=== PATIENT | female | born 1980 | race Caucasian/White ===

== ENCOUNTER 2016-07-17 09:50 | Emergency (ER) | payer BC ==
[2016-07-17] MEDS ORDERED: predniSONE 20 MG TAB As Ordered ONE (10:18)
[2016-07-17] MEDS ORDERED: IPRATROPIUM 0.5MG/ALBUTEROL 2.5MG INH SOL UD 3ML (DUONEB)(J7620) As Ordered ONE (10:32)
--- NOTE | 2016-07-17 13:39 | EDDOCDS ---
Physician Documentation [facility] Name: Rhona Reece Age: 36 yrs Sex: Female : 1980 Arrival Date: 07/17/2016 Time: 09:50 Bed PD Private MD: Kasia Victor Abdul Disposition: 07/17/16 13:29 Discharged to Home/Self Care. Impression: Chronic obstructive pulmonary disease with (acute) exacerbation, Atelectasis. - Condition is Stable. - Discharge Instructions: Atelectasis, Adult, Chronic Obstructive Pulmonary Disease. - Prescriptions for Prednisone 20 mg Oral Tablet - take 3 tablet by ORAL route once daily for 5 days; 15 tablet. Moxifloxacin 400 mg Oral Tablet - take 1 tablet by ORAL route once daily; 5 tablet. Albuterol Sulfate 90 mcg/actuation Inhalation HFA Aerosol Inhaler - inhale 2 puff by INHALATION route every 4 hours As needed; 1 Inhaler. Mucinex 600 mg - take 1 tablet by ORAL route 2 times per day; 30 tablet. - Medication Reconciliation, Local Pharmacy Hours form. - Follow up: Kasia Victor; When: 1 - 2 days; Reason: Recheck today's complaints, Continuance of care. Follow up: Emergency Department; Reason: Worsening of conditions. - Problem is new. - Symptoms have improved. Historical: - Allergies: no known allergies; - Home Meds: 1. Depo-Provera IM every 3 mo 2. Albuterol Inhl as needed has machine but no medicine - PMHx: Asthma; - PSHx: none; - Social history: Smoking status: Patient uses tobacco products, current every day smoker. No barriers to communication noted, The patient speaks fluent Gibraltarian, Speaks appropriately for age. - Family history: Not pertinent. - : The pt / caregiver states he / she is not on anticoagulants. Home medication list is obtained from the patient. - Exposure Risk Screening:: None identified. 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 5 in. (165.10 cm) (R); Pain 0/10; 13:33 BP 129 / 72; Pulse 92; Resp 16; Temp 98.2(TE); Pulse Ox 98% on R/A; Pain 0/10; sew 09:54 Body Mass Index 29.95 (81.65 kg, 165.10 cm) mt4 MDM: 10:13 Financial registration complete. lg 10:17 predniSONE 60 mg PO once; administer with food or milk ordered. ef1 10:17 Albuterol-Ipratropium 1 neb Nebulizer every 20 minutes x3 ordered. ef1 10:17 Call Respiratory ordered. ef1 10:17 Call Respiratory complete. kr3 10:18 Chest, 2 View (pa\E\lat) Ordered. EDMS 10:25 [facility] [place] Payment Agreement was scanned into [employer] and attached to record. lg 11:50 CT Chest Without Contrast Ordered. EDMS Administered Medications: 10:20 Drug: predniSONE 60 mg [prednisone 20 mg tablet (3 tabs)] Route: PO; kr3 10:33 Drug: Albuterol-Ipratropium 1 neb [ipratropium-albuterol 0.5 mg-3 mg(2.5 mg base)/3 mL kt1 nebulization soln (1 neb)] Route: Nebulizer; 10:42 Drug: Albuterol-Ipratropium 1 neb [ipratropium-albuterol 0.5 mg-3 mg(2.5 mg base)/3 mL kt1 nebulization soln (1 neb)] Route: Nebulizer; 10:42 Follow up: Response: Nebulizer completed kt1 10:58 Drug: Albuterol-Ipratropium 1 neb [ipratropium-albuterol 0.5 mg-3 mg(2.5 mg base)/3 mL lb nebulization soln (1 neb)] Route: Nebulizer; Signatures: Dispatcher [employer] EDMS Rigo Anderson Reg Reg lg Sakina Marmolejo RN RN kr3 Kera Montana, PA-C PA-C ef1 Julissa Noyola RN RN pml Bickel, Lindsay lb Chatterton, Kristin kt1 The chart was reviewed and I authenticate all verbal orders and agree with the evaluation and treatment provided.Attachments: 10:25 [facility] Payment Agreement lg MTDD
--- NOTE | 2016-07-17 13:39 | EDDOCDS ---
Nurse's Notes [facility] Name: Rhona Reece Age: 36 yrs Sex: Female : 1980 Arrival Date: 07/17/2016 Time: 09:50 Bed PD Private MD: Kasia Victor Abdul Diagnosis: Chronic obstructive pulmonary disease with (acute) exacerbation;Atelectasis Presentation: 07/17 09:56 Presenting complaint: Patient states: while vacuuming dust from sheet rock last night kr3 developed difficulty breathing. Adult Sepsis Screening: The patient does not have new or worsening altered mentation. Patient's respiratory rate is less than 22. Systolic blood pressure is greater than 100. Patient has a qSOFA score of 0- Negative Sepsis Screen. Suicide/Homicide risk assessment- the patient denies having any suicidal and/or homicidal ideations and does not present with any other emotional, behavioral or mental health complaints. 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 Transition of care: patient was not received from another setting of care. 09:56 Acuity: DINH Level 4 kr3 09:56 Method Of Arrival: Walkin/Carried/Asstd kr3 Triage Assessment: 09:58 General: Appears in no apparent distress, comfortable, Behavior is appropriate for age, kr3 cooperative. Pain: Denies pain. HIV screening NA for this visit Offered previously. Neurological: No deficits noted. Respiratory: Onset: The symptoms/episode began/occurred yesterday, Airway is patent Respiratory effort is even, unlabored, Reports shortness of breath. Derm: Skin is normal. 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 Depo-Provera IM every 3 mo 2. Albuterol Inhl as needed has machine but no medicine - PMHx: Asthma; - PSHx: none; - Social history: Smoking status: Patient uses tobacco products, current every day smoker. No barriers to communication noted, The patient speaks fluent Wallisian, Speaks appropriately for age. - Family history: Not pertinent. - : The pt / caregiver states he / she is not on anticoagulants. Home medication list is obtained from the patient. - Exposure Risk Screening:: None identified. Screenin:00 Screening information is obtained from the patient. Fall risk: No risks identified. kr3 Assistance ADL's: requires no assistance with activities of daily living. Abuse/DV Screen: The patient / caregiver reports he/she is: not in a situation that causes fear, pain or injury. Nutritional screening: No deficits noted. Advance Directives: Currently, there is no health care proxy. home support is adequate. Assessment: 10:20 Reassessment: Patient appears in no apparent distress at this time. Cardiovascular: kr3 Chest pain is denied. Respiratory: Airway is patent Respiratory effort is even, unlabored, Breath sounds with wheezes bilaterally. Derm: Skin is pink, warm & dry. 13:38 General: Appears in no apparent distress, Behavior is appropriate for age, cooperative. pml Pain: Denies pain. Neurological: Level of Consciousness is awake, alert, Oriented to person, place, time. Cardiovascular: Capillary refill < 3 seconds. Respiratory: Airway is patent Respiratory effort is even, unlabored. Derm: Skin is pink, warm & dry. Vital Signs: 09:54 BP 131 / 73 RA Sitting (auto/reg); Pulse 100 RA; Resp 18 S; Temp 97.5(O); Pulse Ox 100% mt4 on R/A; Weight 81.65 kg (R); Height 5 ft. 5 in. (165.10 cm) (R); Pain 0/10; 13:33 BP 129 / 72; Pulse 92; Resp 16; Temp 98.2(TE); Pulse Ox 98% on R/A; Pain 0/10; sew 09:54 Body Mass Index 29.95 (81.65 kg, 165.10 cm) mt4 Vitals: 09:54 Log In Time: July 17, 2016 at 09:50. mt4 ED Course: 09:53 Patient visited by Selam Martino. mt4 09:53 Kasia Victor is Private Physician. mt4 09:53 Patient moved to Waiting mt4 09:54 Patient moved to Pre RCE mt4 09:56 Patient moved to Triage 3 kr3 09:57 Triage Initiated kr3 10:00 The patient / caregiver is instructed regarding the plan of care and ED course. Patient kr3 has correct armband on for positive identification. 10:00 No IV's were initiated during this patient's visit. No procedures done that require kr3 assistance. 10:06 Kera Montana PA-C is PHCP. ef1 10:06 Germán Brasher MD is Attending Physician. ef1 10:08 Patient visited by Kera Montana PA-C. ef1 10:17 Patient moved to PD kr3 10:24 Patient name changed from Rhona\S\Amparo\S\Frankson\S\ to Rhona\S\M\S\Frankson. EDMS 10:25 [facility] Payment Agreement was scanned into [employer] and attached to record. lg 10:42 Patient visited by Kera Montana PA-C. ef1 11:25 Patient visited by Kera Montana PA-C. ef1 11:48 Patient visited by Kera Montana PA-C. ef1 12:27 Patient visited by Kera Montana PA-C. ef1 13:12 Patient visited by Kera Montana PA-C. ef1 13:29 Kasia Victor is Referral Physician. ef1 13:33 Patient visited by Alicia Garza. sew Administered Medications: 10:20 Drug: predniSONE 60 mg [prednisone 20 mg tablet (3 tabs)] Route: PO; kr3 10:33 Drug: Albuterol-Ipratropium 1 neb [ipratropium-albuterol 0.5 mg-3 mg(2.5 mg base)/3 mL kt1 nebulization soln (1 neb)] Route: Nebulizer; 10:42 Drug: Albuterol-Ipratropium 1 neb [ipratropium-albuterol 0.5 mg-3 mg(2.5 mg base)/3 mL kt1 nebulization soln (1 neb)] Route: Nebulizer; 10:42 Follow up: Response: Nebulizer completed kt1 10:58 Drug: Albuterol-Ipratropium 1 neb [ipratropium-albuterol 0.5 mg-3 mg(2.5 mg base)/3 mL lb nebulization soln (1 neb)] Route: Nebulizer; RT: 10:36 Initial Med Neb Given as ordered Patient was instructed and evaluated on procedure. kt1 Respiratory: Breath sounds with wheezes bilaterally. at expiration. Order Results: There are currently no results for this order. Outcome: 13:29 Discharge ordered by Provider. ef1 13:38 Discharge Assessment: Patient awake, alert and oriented x 3. No cognitive and/or pml functional deficits noted. Patient verbalized understanding of disposition instructions. patient administered narcotics - no. The following High Risk Discharge criteria are identified: None. Discharged to home ambulatory. Condition: good Condition: stable. Discharge instructions given to patient, Instructed on discharge instructions, follow up and referral plans. medication usage, Demonstrated understanding of instructions, medications, Pt was receptive of discharge instructions/ teaching. Prescriptions given X 3. No special radiology studies were completed. Property sent home with patient. 13:39 Patient left the ED. pml Signatures: Dispatcher [employer] EDMS Rigo Anderson, Reg Reg lg Doni,Trudy Lord kt1 Sakina Marmolejo,RN RN kr3 Selam Martino mt4 Kera Montana, PA-C PA-C ef1 Julissa Noyola RN RN pml Alicia Garza MTDD
--- NOTE | 2016-07-17 20:45 | REP ---
PA and lateral chest 07/17/2016 Indication: Cough Comparison: PA and lateral chest 10/27/2015, 09/28/2013 Findings: The cardiomediastinal silhouette is normal. Small amount of increased density is seen in the retrosternal location likely related to prominent costochondral margins. Lungs are otherwise clear. The bones and soft tissues within normal limits Impression: Small retrosternal opacity is likely related to summation shadow artifact from superimposed rib/costochondral margins. Recommend CT of the chest which can be performed without contrast to exclude scarring, nodule or infiltrate . Signed by Gely Longoria MD 07/17/2016 08:36 P
--- NOTE | 2016-07-17 21:02 | REP ---
CT chest without contrast when 22 17 Indication PA and lateral chest radiograph performed earlier today demonstrated a retrosternal density. Technique: 3 mm spiral axial sections performed through chest without contrast The thoracic aorta is without aneurysm. The heart is of normal size. There are no pathologically enlarged mediastinal or hilar nodes. There is a calcified hilar node There is hyperinflation bilaterally with a rare bullous changes in lower lobes. Stranding densities are seen within the medial aspect of the right upper lobe and the medial aspect of the right middle lobe most compatible with pleural and parenchymal scarring. There is a calcified granuloma of 8 mm size within the anterior segment right upper lobe, above the minor fissure. Visualized portions of liver, spleen, pancreas, gallbladder are normal. There is a 1.6 cm left adrenal adenoma. Focal cortical thinning and cortical calcification is seen within the lateral mid pole of the left kidney and left kidney is incompletely included in view Impression 1. Hyperinflation with findings most compatible with COPD 2. Old granulomatous disease 3 Stranding densities in the medial aspect of the anterior segment right upper lobe and medial aspect right middle lobe most compatible with plate-like atelectasis and/or scarring. Consider follow-up CT chest in 3-6 months 4. Chronic changes/scarring with cortical thinning and calcification in the lateral mid pole left kidney Signed by Gely Longoria MD 07/17/2016 08:54 P
--- NOTE | 2016-07-19 14:40 | EDDOCDS ---
Physician Documentation [facility] Name: Rhona Reece Age: 36 yrs Sex: Female : 1980 Arrival Date: 07/17/2016 Time: 09:50 Bed PD Private MD: Kasia Victor Abdul Disposition: 07/17/16 13:29 Discharged to Home/Self Care. Impression: Chronic obstructive pulmonary disease with (acute) exacerbation, Atelectasis. - Condition is Stable. - Discharge Instructions: Atelectasis, Adult, Chronic Obstructive Pulmonary Disease. - Prescriptions for Prednisone 20 mg Oral Tablet - take 3 tablet by ORAL route once daily for 5 days; 15 tablet. Moxifloxacin 400 mg Oral Tablet - take 1 tablet by ORAL route once daily; 5 tablet. Albuterol Sulfate 90 mcg/actuation Inhalation HFA Aerosol Inhaler - inhale 2 puff by INHALATION route every 4 hours As needed; 1 Inhaler. Mucinex 600 mg - take 1 tablet by ORAL route 2 times per day; 30 tablet. - Medication Reconciliation, Local Pharmacy Hours form. - Follow up: Kasia Victor; When: 1 - 2 days; Reason: Recheck today's complaints, Continuance of care. Follow up: Emergency Department; Reason: Worsening of conditions. - Problem is new. - Symptoms have improved. Historical: - Allergies: no known allergies; - Home Meds: 1. Depo-Provera IM every 3 mo 2. Albuterol Inhl as needed has machine but no medicine - PMHx: Asthma; - PSHx: none; - Social history: Smoking status: Patient uses tobacco products, current every day smoker. No barriers to communication noted, The patient speaks fluent Bruneian, Speaks appropriately for age. - Family history: Not pertinent. - : The pt / caregiver states he / she is not on anticoagulants. Home medication list is obtained from the patient. - Exposure Risk Screening:: None identified. 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 5 in. (165.10 cm) (R); Pain 0/10; 13:33 BP 129 / 72; Pulse 92; Resp 16; Temp 98.2(TE); Pulse Ox 98% on R/A; Pain 0/10; sew 09:54 Body Mass Index 29.95 (81.65 kg, 165.10 cm) mt4 MDM: 10:13 Financial registration complete. lg 10:17 predniSONE 60 mg PO once; administer with food or milk ordered. ef1 10:17 Albuterol-Ipratropium 1 neb Nebulizer every 20 minutes x3 ordered. ef1 10:17 Call Respiratory ordered. ef1 10:17 Call Respiratory complete. kr3 10:18 Chest, 2 View (pa\E\lat) Ordered. EDMS 10:25 [facility] [place] Payment Agreement was scanned into [employer] and attached to record. lg 11:50 CT Chest Without Contrast Ordered. EDMS 19:52 T-Sheet-- Draft Copy was scanned into [employer] and attached to record. klr Administered Medications: 10:20 Drug: predniSONE 60 mg [prednisone 20 mg tablet (3 tabs)] Route: PO; kr3 10:33 Drug: Albuterol-Ipratropium 1 neb [ipratropium-albuterol 0.5 mg-3 mg(2.5 mg base)/3 mL kt1 nebulization soln (1 neb)] Route: Nebulizer; 10:42 Drug: Albuterol-Ipratropium 1 neb [ipratropium-albuterol 0.5 mg-3 mg(2.5 mg base)/3 mL kt1 nebulization soln (1 neb)] Route: Nebulizer; 10:42 Follow up: Response: Nebulizer completed kt1 10:58 Drug: Albuterol-Ipratropium 1 neb [ipratropium-albuterol 0.5 mg-3 mg(2.5 mg base)/3 mL lb nebulization soln (1 neb)] Route: Nebulizer; Signatures: Dispatcher [employer] EDMS Rigo Anderson, Mir Hester lg Sakina Marmolejo RN RN kr3 Kera [place], PA-C PA-C ef1 Julissa Noyola RN RN pml Redder, Kathie klr Ngozi Marion Kristin kt1 The chart was reviewed and I authenticate all verbal orders and agree with the evaluation and treatment provided.Attachments: 10:25 [facility] [place] Payment Agreement lg 19:52 T-Sheet-- Draft Copy klr Chart Complete MTDD
--- NOTE | 2016-07-19 14:40 | EDDOCDS ---
Nurse's Notes [facility] Name: Rhona Reece Age: 36 yrs Sex: Female : 1980 Arrival Date: 07/17/2016 Time: 09:50 Bed PD Private MD: Kasia Victor Abdul Diagnosis: Chronic obstructive pulmonary disease with (acute) exacerbation;Atelectasis Presentation: 07/17 09:56 Presenting complaint: Patient states: while vacuuming dust from sheet rock last night kr3 developed difficulty breathing. Adult Sepsis Screening: The patient does not have new or worsening altered mentation. Patient's respiratory rate is less than 22. Systolic blood pressure is greater than 100. Patient has a qSOFA score of 0- Negative Sepsis Screen. Suicide/Homicide risk assessment- the patient denies having any suicidal and/or homicidal ideations and does not present with any other emotional, behavioral or mental health complaints. Status: Patient is not a social services specialist or dependent. Transition of care: patient was not received from another setting of care. 09:56 Acuity: DINH Level 4 kr3 09:56 Method Of Arrival: Walkin/Carried/Asstd kr3 Triage Assessment: 09:58 General: Appears in no apparent distress, comfortable, Behavior is appropriate for age, kr3 cooperative. Pain: Denies pain. HIV screening NA for this visit Offered previously. Neurological: No deficits noted. Respiratory: Onset: The symptoms/episode began/occurred yesterday, Airway is patent Respiratory effort is even, unlabored, Reports shortness of breath. Derm: Skin is normal. 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 Depo-Provera IM every 3 mo 2. Albuterol Inhl as needed has machine but no medicine - PMHx: Asthma; - PSHx: none; - Social history: Smoking status: Patient uses tobacco products, current every day smoker. No barriers to communication noted, The patient speaks fluent Palestinian, Speaks appropriately for age. - Family history: Not pertinent. - : The pt / caregiver states he / she is not on anticoagulants. Home medication list is obtained from the patient. - Exposure Risk Screening:: None identified. Screenin:00 Screening information is obtained from the patient. Fall risk: No risks identified. kr3 Assistance ADL's: requires no assistance with activities of daily living. Abuse/DV Screen: The patient / caregiver reports he/she is: not in a situation that causes fear, pain or injury. Nutritional screening: No deficits noted. Advance Directives: Currently, there is no health care proxy. home support is adequate. Assessment: 10:20 Reassessment: Patient appears in no apparent distress at this time. Cardiovascular: kr3 Chest pain is denied. Respiratory: Airway is patent Respiratory effort is even, unlabored, Breath sounds with wheezes bilaterally. Derm: Skin is pink, warm & dry. 13:38 General: Appears in no apparent distress, Behavior is appropriate for age, cooperative. pml Pain: Denies pain. Neurological: Level of Consciousness is awake, alert, Oriented to person, place, time. Cardiovascular: Capillary refill < 3 seconds. Respiratory: Airway is patent Respiratory effort is even, unlabored. Derm: Skin is pink, warm & dry. Vital Signs: 09:54 BP 131 / 73 RA Sitting (auto/reg); Pulse 100 RA; Resp 18 S; Temp 97.5(O); Pulse Ox 100% mt4 on R/A; Weight 81.65 kg (R); Height 5 ft. 5 in. (165.10 cm) (R); Pain 0/10; 13:33 BP 129 / 72; Pulse 92; Resp 16; Temp 98.2(TE); Pulse Ox 98% on R/A; Pain 0/10; sew 09:54 Body Mass Index 29.95 (81.65 kg, 165.10 cm) mt4 Vitals: 09:54 Log In Time: July 17, 2016 at 09:50. mt4 ED Course: 09:53 Patient visited by Selam Martino. mt4 09:53 Kasia Victor is Private Physician. mt4 09:53 Patient moved to Waiting mt4 09:54 Patient moved to Pre RCE mt4 09:56 Patient moved to Triage 3 kr3 09:57 Triage Initiated kr3 10:00 The patient / caregiver is instructed regarding the plan of care and ED course. Patient kr3 has correct armband on for positive identification. 10:00 No IV's were initiated during this patient's visit. No procedures done that require kr3 assistance. 10:06 Kera Montana PA-C is PHCP. ef1 10:06 Germán Brasher MD is Attending Physician. ef1 10:08 Patient visited by Kera Montana PA-C. ef1 10:17 Patient moved to PD kr3 10:24 Patient name changed from Rhona\S\Amparo\S\Frankson\S\ to Rhona\S\M\S\Frankson. EDMS 10:25 [facility] [place] [place] Payment Agreement was scanned into [employer] and attached to record. lg 10:42 Patient visited by Kera Montana PA-C. ef1 11:25 Patient visited by Kera Montana PA-C. ef1 11:48 Patient visited by Kera Montana PA-C. ef1 12:27 Patient visited by Kera Montana PA-C. ef1 13:12 Patient visited by Kera Montana PA-C. ef1 13:29 Kasia Victor is Referral Physician. ef1 13:33 Patient visited by Alicia Garza. sew 19:52 T-Sheet-- Draft Copy was scanned into [employer] and attached to record. klr 20:58 Chest, 2 View (pa\E\lat) Returned. EDMS 21:42 CT Chest Without Contrast Returned. EDMS Administered Medications: 10:20 Drug: predniSONE 60 mg [prednisone 20 mg tablet (3 tabs)] Route: PO; kr3 10:33 Drug: Albuterol-Ipratropium 1 neb [ipratropium-albuterol 0.5 mg-3 mg(2.5 mg base)/3 mL kt1 nebulization soln (1 neb)] Route: Nebulizer; 10:42 Drug: Albuterol-Ipratropium 1 neb [ipratropium-albuterol 0.5 mg-3 mg(2.5 mg base)/3 mL kt1 nebulization soln (1 neb)] Route: Nebulizer; 10:42 Follow up: Response: Nebulizer completed kt1 10:58 Drug: Albuterol-Ipratropium 1 neb [ipratropium-albuterol 0.5 mg-3 mg(2.5 mg base)/3 mL lb nebulization soln (1 neb)] Route: Nebulizer; RT: 10:36 Initial Med Neb Given as ordered Patient was instructed and evaluated on procedure. kt1 Respiratory: Breath sounds with wheezes bilaterally. at expiration. Order Results: Radiology Order: Chest, 2 View (pa\E\lat) Test: Chest, 2 View (pa\E\lat) REASON FOR EXAMINATION: Cough; PA and lateral chest 07/17/2016; ; Indication: Cough; ; Comparison: PA and lateral chest 10/27/2015, 09/28/2013; ; Findings: The cardiomediastinal silhouette is normal. Small amount of increased; density is seen in the retrosternal location likely related to prominent; costochondral margins. Lungs are otherwise clear. The bones and soft tissues; within normal limits; ; Impression:; ; Small retrosternal opacity is likely related to summation shadow artifact from; superimposed rib/costochondral margins.; ; Recommend CT of the chest which can be performed without contrast to exclude; scarring, nodule or infiltrate .; ; ; Signed by; Gely Longoria MD 07/17/2016 08:36 P; Radiology Order: CT Chest Without Contrast Test: CT Chest Without Contrast REASON FOR EXAMINATION: abn on CXR; CT chest without contrast when 17; ; Indication PA and lateral chest radiograph performed earlier today demonstrated a; retrosternal density.; ; Technique: 3 mm spiral axial sections performed through chest without contrast; ; The thoracic aorta is without aneurysm. The heart is of normal size. There are; no pathologically enlarged mediastinal or hilar nodes. There is a calcified; hilar node; ; There is hyperinflation bilaterally with a rare bullous changes in lower lobes.; Stranding densities are seen within the medial aspect of the right upper lobe and; the medial aspect of the right middle lobe most compatible with pleural and; parenchymal scarring. There is a calcified granuloma of 8 mm size within the; anterior segment right upper lobe, above the minor fissure.; ; Visualized portions of liver, spleen, pancreas, gallbladder are normal. There is; a 1.6 cm left adrenal adenoma. Focal cortical thinning and cortical; calcification is seen within the lateral mid pole of the left kidney and left; kidney is incompletely included in view; ; Impression; 1. Hyperinflation with findings most compatible with COPD; ; 2. Old granulomatous disease; ; 3 Stranding densities in the medial aspect of the anterior segment right upper; lobe and medial aspect right middle lobe most compatible with plate-like; atelectasis and/or scarring. Consider follow-up CT chest in 3-6 months; ; 4. Chronic changes/scarring with cortical thinning and calcification in the; lateral mid pole left kidney; ; ; Signed by; Gely Longoria MD 07/17/2016 08:54 P; Outcome: 13:29 Discharge ordered by Provider. ef1 13:38 Discharge Assessment: Patient awake, alert and oriented x 3. No cognitive and/or pml functional deficits noted. Patient verbalized understanding of disposition instructions. patient administered narcotics - no. The following High Risk Discharge criteria are identified: None. Discharged to home ambulatory. Condition: good Condition: stable. Discharge instructions given to patient, Instructed on discharge instructions, follow up and referral plans. medication usage, Demonstrated understanding of instructions, medications, Pt was receptive of discharge instructions/ teaching. Prescriptions given X 3. No special radiology studies were completed. Property sent home with patient. 13:39 Patient left the ED. pml Signatures: Dispatcher [employer] EDRigo Batista, Reg Reg Ngozi Gama Kristin kt1 Sakina Marmolejo,RN RN kr3 Selam Martino mt4 Kera Montana, PA-C PA-C ef1 Julissa Noyola,RN RN Alicia Julian Kathie klr Chart Complete MTDD
--- NOTE | 2016-07-19 14:40 | EDDOCDS ---
Physician Documentation [facility] Name: Rhona Reece Age: 36 yrs Sex: Female : 1980 Arrival Date: 07/17/2016 Time: 09:50 Bed PD Private MD: Kasia Victor Abdul Disposition: 07/17/16 13:29 Discharged to Home/Self Care. Impression: Chronic obstructive pulmonary disease with (acute) exacerbation, Atelectasis. - Condition is Stable. - Discharge Instructions: Atelectasis, Adult, Chronic Obstructive Pulmonary Disease. - Prescriptions for Prednisone 20 mg Oral Tablet - take 3 tablet by ORAL route once daily for 5 days; 15 tablet. Moxifloxacin 400 mg Oral Tablet - take 1 tablet by ORAL route once daily; 5 tablet. Albuterol Sulfate 90 mcg/actuation Inhalation HFA Aerosol Inhaler - inhale 2 puff by INHALATION route every 4 hours As needed; 1 Inhaler. Mucinex 600 mg - take 1 tablet by ORAL route 2 times per day; 30 tablet. - Medication Reconciliation, Local Pharmacy Hours form. - Follow up: Kasia Victor; When: 1 - 2 days; Reason: Recheck today's complaints, Continuance of care. Follow up: Emergency Department; Reason: Worsening of conditions. - Problem is new. - Symptoms have improved. Historical: - Allergies: no known allergies; - Home Meds: 1. Depo-Provera IM every 3 mo 2. Albuterol Inhl as needed has machine but no medicine - PMHx: Asthma; - PSHx: none; - Social history: Smoking status: Patient uses tobacco products, current every day smoker. No barriers to communication noted, The patient speaks fluent Armenian, Speaks appropriately for age. - Family history: Not pertinent. - : The pt / caregiver states he / she is not on anticoagulants. Home medication list is obtained from the patient. - Exposure Risk Screening:: None identified. 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 5 in. (165.10 cm) (R); Pain 0/10; 13:33 BP 129 / 72; Pulse 92; Resp 16; Temp 98.2(TE); Pulse Ox 98% on R/A; Pain 0/10; sew 09:54 Body Mass Index 29.95 (81.65 kg, 165.10 cm) mt4 MDM: 10:13 Financial registration complete. lg 10:17 predniSONE 60 mg PO once; administer with food or milk ordered. ef1 10:17 Albuterol-Ipratropium 1 neb Nebulizer every 20 minutes x3 ordered. ef1 10:17 Call Respiratory ordered. ef1 10:17 Call Respiratory complete. kr3 10:18 Chest, 2 View (pa\E\lat) Ordered. EDMS 10:25 [facility] [place] Agreement was scanned into [facility] and attached to record. lg 11:50 CT Chest Without Contrast Ordered. EDMS 19:52 T-Sheet-- Draft Copy was scanned into [facility] and attached to record. klr Administered Medications: 10:20 Drug: predniSONE 60 mg [prednisone 20 mg tablet (3 tabs)] Route: PO; kr3 10:33 Drug: Albuterol-Ipratropium 1 neb [ipratropium-albuterol 0.5 mg-3 mg(2.5 mg base)/3 mL kt1 nebulization soln (1 neb)] Route: Nebulizer; 10:42 Drug: Albuterol-Ipratropium 1 neb [ipratropium-albuterol 0.5 mg-3 mg(2.5 mg base)/3 mL kt1 nebulization soln (1 neb)] Route: Nebulizer; 10:42 Follow up: Response: Nebulizer completed kt1 10:58 Drug: Albuterol-Ipratropium 1 neb [ipratropium-albuterol 0.5 mg-3 mg(2.5 mg base)/3 mL lb nebulization soln (1 neb)] Route: Nebulizer; Signatures: Dispatcher [employer] EDMS Rigo Anderson, Mir Hester lg Sakina Marmolejo RN RN kr3 Kera Montana, PA-C PA-C ef1 Julissa Noyola RN RN pml Redder, Kathie klr Ngozi Marion Kristin kt1 The chart was reviewed and I authenticate all verbal orders and agree with the evaluation and treatment provided.Attachments: 10:25 [facility] [place] Agreement lg 19:52 T-Sheet-- Draft Copy klr Chart Complete MTDD
--- NOTE | 2016-07-19 20:17 | EDDOCDS ---
Physician Documentation [facility] Name: Rhona Reece Age: 36 yrs Sex: Female : 1980 Arrival Date: 07/17/2016 Time: 09:50 Bed PD Private MD: Kasia Victor Abdul Disposition: 07/17/16 13:29 Discharged to Home/Self Care. Impression: Chronic obstructive pulmonary disease with (acute) exacerbation, Atelectasis. - Condition is Stable. - Discharge Instructions: Atelectasis, Adult, Chronic Obstructive Pulmonary Disease. - Prescriptions for Prednisone 20 mg Oral Tablet - take 3 tablet by ORAL route once daily for 5 days; 15 tablet. Moxifloxacin 400 mg Oral Tablet - take 1 tablet by ORAL route once daily; 5 tablet. Albuterol Sulfate 90 mcg/actuation Inhalation HFA Aerosol Inhaler - inhale 2 puff by INHALATION route every 4 hours As needed; 1 Inhaler. Mucinex 600 mg - take 1 tablet by ORAL route 2 times per day; 30 tablet. - Medication Reconciliation, Local Pharmacy Hours form. - Follow up: Kasia Victor; When: 1 - 2 days; Reason: Recheck today's complaints, Continuance of care. Follow up: Emergency Department; Reason: Worsening of conditions. - Problem is new. - Symptoms have improved. Historical: - Allergies: no known allergies; - Home Meds: 1. Depo-Provera IM every 3 mo 2. Albuterol Inhl as needed has machine but no medicine - PMHx: Asthma; - PSHx: none; - Social history: Smoking status: Patient uses tobacco products, current every day smoker. No barriers to communication noted, The patient speaks fluent Venezuelan, Speaks appropriately for age. - Family history: Not pertinent. - : The pt / caregiver states he / she is not on anticoagulants. Home medication list is obtained from the patient. - Exposure Risk Screening:: None identified. 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 5 in. (165.10 cm) (R); Pain 0/10; 13:33 BP 129 / 72; Pulse 92; Resp 16; Temp 98.2(TE); Pulse Ox 98% on R/A; Pain 0/10; sew 09:54 Body Mass Index 29.95 (81.65 kg, 165.10 cm) mt4 MDM: 10:13 Financial registration complete. lg 10:17 predniSONE 60 mg PO once; administer with food or milk ordered. ef1 10:17 Albuterol-Ipratropium 1 neb Nebulizer every 20 minutes x3 ordered. ef1 10:17 Call Respiratory ordered. ef1 10:17 Call Respiratory complete. kr3 10:18 Chest, 2 View (pa\E\lat) Ordered. EDMS 10:25 [facility] Payment Agreement was scanned into [employer] and attached to record. lg 11:50 CT Chest Without Contrast Ordered. EDMS 19:52 T-Sheet-- Draft Copy was scanned into [employer] and attached to record. klr Administered Medications: 10:20 Drug: predniSONE 60 mg [prednisone 20 mg tablet (3 tabs)] Route: PO; kr3 10:33 Drug: Albuterol-Ipratropium 1 neb [ipratropium-albuterol 0.5 mg-3 mg(2.5 mg base)/3 mL kt1 nebulization soln (1 neb)] Route: Nebulizer; 10:42 Drug: Albuterol-Ipratropium 1 neb [ipratropium-albuterol 0.5 mg-3 mg(2.5 mg base)/3 mL kt1 nebulization soln (1 neb)] Route: Nebulizer; 10:42 Follow up: Response: Nebulizer completed kt1 10:58 Drug: Albuterol-Ipratropium 1 neb [ipratropium-albuterol 0.5 mg-3 mg(2.5 mg base)/3 mL lb nebulization soln (1 neb)] Route: Nebulizer; Addendum: 07/19/2016 20:15 Radiology Callback: Radiology results faxed to primary care physician/provider. dr mari leonardo faxed formal report of ct chest for fu mlg. Signatures: Dispatcher [employer] EDCO Olive Gaines MD MD ml Ganter, LoriLee, Reg Reg lg Sakina Marmolejo RN RN kr3 Kera Montana, PA-C PA-C ef1 Julissa Noyola RN RN pml Redder, Kathie klr Bickel, Lindsay lb [place], Kristin kt1 The chart was reviewed and I authenticate all verbal orders and agree with the evaluation and treatment provided.Attachments: 07/17 10:25 [facility] Payment Agreement lg 19:52 T-Sheet-- Draft Copy klr MTDD
--- NOTE | 2016-07-19 20:17 | EDDOCDS ---
Nurse's Notes [facility] Name: Rhona Reece Age: 36 yrs Sex: Female : 1980 Arrival Date: 07/17/2016 Time: 09:50 Bed PD Private MD: Kasia Victor Abdul Diagnosis: Chronic obstructive pulmonary disease with (acute) exacerbation;Atelectasis Presentation: 07/17 09:56 Presenting complaint: Patient states: while vacuuming dust from sheet rock last night kr3 developed difficulty breathing. Adult Sepsis Screening: The patient does not have new or worsening altered mentation. Patient's respiratory rate is less than 22. Systolic blood pressure is greater than 100. Patient has a qSOFA score of 0- Negative Sepsis Screen. Suicide/Homicide risk assessment- the patient denies having any suicidal and/or homicidal ideations and does not present with any other emotional, behavioral or mental health complaints. Status: Patient is not a guest services manager or dependent. Transition of care: patient was not received from another setting of care. 09:56 Acuity: DINH Level 4 kr3 09:56 Method Of Arrival: Walkin/Carried/Asstd kr3 Triage Assessment: 09:58 General: Appears in no apparent distress, comfortable, Behavior is appropriate for age, kr3 cooperative. Pain: Denies pain. HIV screening NA for this visit Offered previously. Neurological: No deficits noted. Respiratory: Onset: The symptoms/episode began/occurred yesterday, Airway is patent Respiratory effort is even, unlabored, Reports shortness of breath. Derm: Skin is normal. 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 Depo-Provera IM every 3 mo 2. Albuterol Inhl as needed has machine but no medicine - PMHx: Asthma; - PSHx: none; - Social history: Smoking status: Patient uses tobacco products, current every day smoker. No barriers to communication noted, The patient speaks fluent Swazi, Speaks appropriately for age. - Family history: Not pertinent. - : The pt / caregiver states he / she is not on anticoagulants. Home medication list is obtained from the patient. - Exposure Risk Screening:: None identified. Screenin:00 Screening information is obtained from the patient. Fall risk: No risks identified. kr3 Assistance ADL's: requires no assistance with activities of daily living. Abuse/DV Screen: The patient / caregiver reports he/she is: not in a situation that causes fear, pain or injury. Nutritional screening: No deficits noted. Advance Directives: Currently, there is no health care proxy. home support is adequate. Assessment: 10:20 Reassessment: Patient appears in no apparent distress at this time. Cardiovascular: kr3 Chest pain is denied. Respiratory: Airway is patent Respiratory effort is even, unlabored, Breath sounds with wheezes bilaterally. Derm: Skin is pink, warm & dry. 13:38 General: Appears in no apparent distress, Behavior is appropriate for age, cooperative. pml Pain: Denies pain. Neurological: Level of Consciousness is awake, alert, Oriented to person, place, time. Cardiovascular: Capillary refill < 3 seconds. Respiratory: Airway is patent Respiratory effort is even, unlabored. Derm: Skin is pink, warm & dry. Vital Signs: 09:54 BP 131 / 73 RA Sitting (auto/reg); Pulse 100 RA; Resp 18 S; Temp 97.5(O); Pulse Ox 100% mt4 on R/A; Weight 81.65 kg (R); Height 5 ft. 5 in. (165.10 cm) (R); Pain 0/10; 13:33 BP 129 / 72; Pulse 92; Resp 16; Temp 98.2(TE); Pulse Ox 98% on R/A; Pain 0/10; sew 09:54 Body Mass Index 29.95 (81.65 kg, 165.10 cm) mt4 Vitals: 09:54 Log In Time: July 17, 2016 at 09:50. mt4 ED Course: 09:53 Patient visited by Selam Martino. mt4 09:53 Kasia Victor is Private Physician. mt4 09:53 Patient moved to Waiting mt4 09:54 Patient moved to Pre RCE mt4 09:56 Patient moved to Triage 3 kr3 09:57 Triage Initiated kr3 10:00 The patient / caregiver is instructed regarding the plan of care and ED course. Patient kr3 has correct armband on for positive identification. 10:00 No IV's were initiated during this patient's visit. No procedures done that require kr3 assistance. 10:06 Kera Montana PA-C is PHCP. ef1 10:06 Germán Brasher MD is Attending Physician. ef1 10:08 Patient visited by Kera Montana PA-C. ef1 10:17 Patient moved to PD kr3 10:24 Patient name changed from Rhona\S\Amparo\S\Frankson\S\ to Rhona\S\M\S\Frankson. EDMS 10:25 [facility] Payment Agreement was scanned into [employer] and attached to record. lg 10:42 Patient visited by Kera Montana PA-C. ef1 11:25 Patient visited by Kera Montana PA-C. ef1 11:48 Patient visited by Kera Montana PA-C. ef1 12:27 Patient visited by Kera Montana PA-C. ef1 13:12 Patient visited by Kera Montana PA-C. ef1 13:29 Kasia Victor is Referral Physician. ef1 13:33 Patient visited by Alicia Garza. sew 19:52 T-Sheet-- Draft Copy was scanned into [employer] and attached to record. klr 20:58 Chest, 2 View (pa\E\lat) Returned. EDMS 21:42 CT Chest Without Contrast Returned. EDMS Administered Medications: 10:20 Drug: predniSONE 60 mg [prednisone 20 mg tablet (3 tabs)] Route: PO; kr3 10:33 Drug: Albuterol-Ipratropium 1 neb [ipratropium-albuterol 0.5 mg-3 mg(2.5 mg base)/3 mL kt1 nebulization soln (1 neb)] Route: Nebulizer; 10:42 Drug: Albuterol-Ipratropium 1 neb [ipratropium-albuterol 0.5 mg-3 mg(2.5 mg base)/3 mL kt1 nebulization soln (1 neb)] Route: Nebulizer; 10:42 Follow up: Response: Nebulizer completed kt1 10:58 Drug: Albuterol-Ipratropium 1 neb [ipratropium-albuterol 0.5 mg-3 mg(2.5 mg base)/3 mL lb nebulization soln (1 neb)] Route: Nebulizer; RT: 10:36 Initial Med Neb Given as ordered Patient was instructed and evaluated on procedure. kt1 Respiratory: Breath sounds with wheezes bilaterally. at expiration. Order Results: Radiology Order: Chest, 2 View (pa\E\lat) Test: Chest, 2 View (pa\E\lat) REASON FOR EXAMINATION: Cough; PA and lateral chest 07/17/2016; ; Indication: Cough; ; Comparison: PA and lateral chest 10/27/2015, 09/28/2013; ; Findings: The cardiomediastinal silhouette is normal. Small amount of increased; density is seen in the retrosternal location likely related to prominent; costochondral margins. Lungs are otherwise clear. The bones and soft tissues; within normal limits; ; Impression:; ; Small retrosternal opacity is likely related to summation shadow artifact from; superimposed rib/costochondral margins.; ; Recommend CT of the chest which can be performed without contrast to exclude; scarring, nodule or infiltrate .; ; ; Signed by; Gely Longoria MD 07/17/2016 08:36 P; Radiology Order: CT Chest Without Contrast Test: CT Chest Without Contrast REASON FOR EXAMINATION: abn on CXR; CT chest without contrast when 17; ; Indication PA and lateral chest radiograph performed earlier today demonstrated a; retrosternal density.; ; Technique: 3 mm spiral axial sections performed through chest without contrast; ; The thoracic aorta is without aneurysm. The heart is of normal size. There are; no pathologically enlarged mediastinal or hilar nodes. There is a calcified; hilar node; ; There is hyperinflation bilaterally with a rare bullous changes in lower lobes.; Stranding densities are seen within the medial aspect of the right upper lobe and; the medial aspect of the right middle lobe most compatible with pleural and; parenchymal scarring. There is a calcified granuloma of 8 mm size within the; anterior segment right upper lobe, above the minor fissure.; ; Visualized portions of liver, spleen, pancreas, gallbladder are normal. There is; a 1.6 cm left adrenal adenoma. Focal cortical thinning and cortical; calcification is seen within the lateral mid pole of the left kidney and left; kidney is incompletely included in view; ; Impression; 1. Hyperinflation with findings most compatible with COPD; ; 2. Old granulomatous disease; ; 3 Stranding densities in the medial aspect of the anterior segment right upper; lobe and medial aspect right middle lobe most compatible with plate-like; atelectasis and/or scarring. Consider follow-up CT chest in 3-6 months; ; 4. Chronic changes/scarring with cortical thinning and calcification in the; lateral mid pole left kidney; ; ; Signed by; Gely Longoria MD 07/17/2016 08:54 P; Outcome: 13:29 Discharge ordered by Provider. ef1 13:38 Discharge Assessment: Patient awake, alert and oriented x 3. No cognitive and/or pml functional deficits noted. Patient verbalized understanding of disposition instructions. patient administered narcotics - no. The following High Risk Discharge criteria are identified: None. Discharged to home ambulatory. Condition: good Condition: stable. Discharge instructions given to patient, Instructed on discharge instructions, follow up and referral plans. medication usage, Demonstrated understanding of instructions, medications, Pt was receptive of discharge instructions/ teaching. Prescriptions given X 3. No special radiology studies were completed. Property sent home with patient. 13:39 Patient left the ED. pml Signatures: Dispatcher [employer] EDRigo Batista, Reg Reg Ngozi Gama Kristin kt1 Sakina Marmolejo,RN RN kr3 Selam Martino mt4 Kera Montana, PA-C PA-C ef1 Julissa Noyola,RN RN Alicia Julian Kathie klr Chart Complete MTDD
--- NOTE | 2016-07-19 20:17 | EDDOCDS ---
Physician Documentation [facility] Name: Rhona Reece Age: 36 yrs Sex: Female : 1980 Arrival Date: 07/17/2016 Time: 09:50 Bed PD Private MD: Kasia Victor Abdul Disposition: 07/17/16 13:29 Discharged to Home/Self Care. Impression: Chronic obstructive pulmonary disease with (acute) exacerbation, Atelectasis. - Condition is Stable. - Discharge Instructions: Atelectasis, Adult, Chronic Obstructive Pulmonary Disease. - Prescriptions for Prednisone 20 mg Oral Tablet - take 3 tablet by ORAL route once daily for 5 days; 15 tablet. Moxifloxacin 400 mg Oral Tablet - take 1 tablet by ORAL route once daily; 5 tablet. Albuterol Sulfate 90 mcg/actuation Inhalation HFA Aerosol Inhaler - inhale 2 puff by INHALATION route every 4 hours As needed; 1 Inhaler. Mucinex 600 mg - take 1 tablet by ORAL route 2 times per day; 30 tablet. - Medication Reconciliation, Local Pharmacy Hours form. - Follow up: Kasia Victor; When: 1 - 2 days; Reason: Recheck today's complaints, Continuance of care. Follow up: Emergency Department; Reason: Worsening of conditions. - Problem is new. - Symptoms have improved. Historical: - Allergies: no known allergies; - Home Meds: 1. Depo-Provera IM every 3 mo 2. Albuterol Inhl as needed has machine but no medicine - PMHx: Asthma; - PSHx: none; - Social history: Smoking status: Patient uses tobacco products, current every day smoker. No barriers to communication noted, The patient speaks fluent Djiboutian, Speaks appropriately for age. - Family history: Not pertinent. - : The pt / caregiver states he / she is not on anticoagulants. Home medication list is obtained from the patient. - Exposure Risk Screening:: None identified. 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 5 in. (165.10 cm) (R); Pain 0/10; 13:33 BP 129 / 72; Pulse 92; Resp 16; Temp 98.2(TE); Pulse Ox 98% on R/A; Pain 0/10; sew 09:54 Body Mass Index 29.95 (81.65 kg, 165.10 cm) mt4 MDM: 10:13 Financial registration complete. lg 10:17 predniSONE 60 mg PO once; administer with food or milk ordered. ef1 10:17 Albuterol-Ipratropium 1 neb Nebulizer every 20 minutes x3 ordered. ef1 10:17 Call Respiratory ordered. ef1 10:17 Call Respiratory complete. kr3 10:18 Chest, 2 View (pa\E\lat) Ordered. EDMS 10:25 [facility] [place] Agreement was scanned into [employer] and attached to record. lg 11:50 CT Chest Without Contrast Ordered. EDMS 19:52 T-Sheet-- Draft Copy was scanned into [employer] and attached to record. klr Administered Medications: 10:20 Drug: predniSONE 60 mg [prednisone 20 mg tablet (3 tabs)] Route: PO; kr3 10:33 Drug: Albuterol-Ipratropium 1 neb [ipratropium-albuterol 0.5 mg-3 mg(2.5 mg base)/3 mL kt1 nebulization soln (1 neb)] Route: Nebulizer; 10:42 Drug: Albuterol-Ipratropium 1 neb [ipratropium-albuterol 0.5 mg-3 mg(2.5 mg base)/3 mL kt1 nebulization soln (1 neb)] Route: Nebulizer; 10:42 Follow up: Response: Nebulizer completed kt1 10:58 Drug: Albuterol-Ipratropium 1 neb [ipratropium-albuterol 0.5 mg-3 mg(2.5 mg base)/3 mL lb nebulization soln (1 neb)] Route: Nebulizer; Addendum: 07/19/2016 20:15 Radiology Callback: Radiology results faxed to primary care physician/provider. dr mari leonardo faxed formal report of ct chest for fu mlg. Signatures: Dispatcher [employer] EDID Olive Gaines MD MD ml Ganter, LoriLee, Reg Reg lg Sakina Marmolejo RN RN kr3 Kera Montana, PA-C PA-C ef1 Julissa Noyola RN RN pml Redder, Kathie klr Bickel, Lindsay lb Chatterton, Kristin kt1 The chart was reviewed and I authenticate all verbal orders and agree with the evaluation and treatment provided.Attachments: 07/17 10:25 [facility] [place] Agreement lg 19:52 T-Sheet-- Draft Copy klr Chart Complete MTDD
--- NOTE | 2016-07-19 20:17 | EDDOCDS ---
Physician Documentation [facility] Name: Rhona Reece Age: 36 yrs Sex: Female : 1980 Arrival Date: 07/17/2016 Time: 09:50 Bed PD Private MD: Kasia Victor Abdul Disposition: 07/17/16 13:29 Discharged to Home/Self Care. Impression: Chronic obstructive pulmonary disease with (acute) exacerbation, Atelectasis. - Condition is Stable. - Discharge Instructions: Atelectasis, Adult, Chronic Obstructive Pulmonary Disease. - Prescriptions for Prednisone 20 mg Oral Tablet - take 3 tablet by ORAL route once daily for 5 days; 15 tablet. Moxifloxacin 400 mg Oral Tablet - take 1 tablet by ORAL route once daily; 5 tablet. Albuterol Sulfate 90 mcg/actuation Inhalation HFA Aerosol Inhaler - inhale 2 puff by INHALATION route every 4 hours As needed; 1 Inhaler. Mucinex 600 mg - take 1 tablet by ORAL route 2 times per day; 30 tablet. - Medication Reconciliation, Local Pharmacy Hours form. - Follow up: Kasia Victor; When: 1 - 2 days; Reason: Recheck today's complaints, Continuance of care. Follow up: Emergency Department; Reason: Worsening of conditions. - Problem is new. - Symptoms have improved. Historical: - Allergies: no known allergies; - Home Meds: 1. Depo-Provera IM every 3 mo 2. Albuterol Inhl as needed has machine but no medicine - PMHx: Asthma; - PSHx: none; - Social history: Smoking status: Patient uses tobacco products, current every day smoker. No barriers to communication noted, The patient speaks fluent Fijian, Speaks appropriately for age. - Family history: Not pertinent. - : The pt / caregiver states he / she is not on anticoagulants. Home medication list is obtained from the patient. - Exposure Risk Screening:: None identified. 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 5 in. (165.10 cm) (R); Pain 0/10; 13:33 BP 129 / 72; Pulse 92; Resp 16; Temp 98.2(TE); Pulse Ox 98% on R/A; Pain 0/10; sew 09:54 Body Mass Index 29.95 (81.65 kg, 165.10 cm) mt4 MDM: 10:13 Financial registration complete. lg 10:17 predniSONE 60 mg PO once; administer with food or milk ordered. ef1 10:17 Albuterol-Ipratropium 1 neb Nebulizer every 20 minutes x3 ordered. ef1 10:17 Call Respiratory ordered. ef1 10:17 Call Respiratory complete. kr3 10:18 Chest, 2 View (pa\E\lat) Ordered. EDMS 10:25 [facility] Payment Agreement was scanned into [employer] and attached to record. lg 11:50 CT Chest Without Contrast Ordered. EDMS 19:52 T-Sheet-- Draft Copy was scanned into [employer] and attached to record. klr Administered Medications: 10:20 Drug: predniSONE 60 mg [prednisone 20 mg tablet (3 tabs)] Route: PO; kr3 10:33 Drug: Albuterol-Ipratropium 1 neb [ipratropium-albuterol 0.5 mg-3 mg(2.5 mg base)/3 mL kt1 nebulization soln (1 neb)] Route: Nebulizer; 10:42 Drug: Albuterol-Ipratropium 1 neb [ipratropium-albuterol 0.5 mg-3 mg(2.5 mg base)/3 mL kt1 nebulization soln (1 neb)] Route: Nebulizer; 10:42 Follow up: Response: Nebulizer completed kt1 10:58 Drug: Albuterol-Ipratropium 1 neb [ipratropium-albuterol 0.5 mg-3 mg(2.5 mg base)/3 mL lb nebulization soln (1 neb)] Route: Nebulizer; Addendum: 07/19/2016 20:15 Radiology Callback: Radiology results faxed to primary care physician/provider. dr mari leonardo faxed formal report of ct chest for fu mlg. Signatures: Dispatcher [employer] EDWA Olive Gaines MD MD ml Ganter, LoriLee, Reg Reg lg Sakina Marmolejo RN RN kr3 Kera Montana, PA-C PA-C ef1 Julissa Noyola RN RN pml Redder, Kathie klr Bickel, Lindsay lb [place]ter[place], Kristin kt1 The chart was reviewed and I authenticate all verbal orders and agree with the evaluation and treatment provided.Attachments: 07/17 10:25 [facility] Payment Agreement lg 19:52 T-Sheet-- Draft Copy klr Chart Complete MTDD
--- NOTE | 2016-07-19 20:17 | EDDOCDS ---
Nurse's Notes [facility] Name: Rhona Reece Age: 36 yrs Sex: Female : 1980 Arrival Date: 07/17/2016 Time: 09:50 Bed PD Private MD: Kasia Victor Abdul Diagnosis: Chronic obstructive pulmonary disease with (acute) exacerbation;Atelectasis Presentation: 07/17 09:56 Presenting complaint: Patient states: while vacuuming dust from sheet rock last night kr3 developed difficulty breathing. Adult Sepsis Screening: The patient does not have new or worsening altered mentation. Patient's respiratory rate is less than 22. Systolic blood pressure is greater than 100. Patient has a qSOFA score of 0- Negative Sepsis Screen. Suicide/Homicide risk assessment- the patient denies having any suicidal and/or homicidal ideations and does not present with any other emotional, behavioral or mental health complaints. Status: Patient is not a financial services rep or dependent. Transition of care: patient was not received from another setting of care. 09:56 Acuity: DINH Level 4 kr3 09:56 Method Of Arrival: Walkin/Carried/Asstd kr3 Triage Assessment: 09:58 General: Appears in no apparent distress, comfortable, Behavior is appropriate for age, kr3 cooperative. Pain: Denies pain. HIV screening NA for this visit Offered previously. Neurological: No deficits noted. Respiratory: Onset: The symptoms/episode began/occurred yesterday, Airway is patent Respiratory effort is even, unlabored, Reports shortness of breath. Derm: Skin is normal. STEP DOWN SPECIALIST: 09:58 LMP N/A - control method kr3 Historical: - Allergies: no known allergies; - Home Meds: 1. Depo-Provera IM every 3 mo 2. Albuterol Inhl as needed has machine but no medicine - PMHx: Asthma; - PSHx: none; - Social history: Smoking status: Patient uses tobacco products, current every day smoker. No barriers to communication noted, The patient speaks fluent Samoan, Speaks appropriately for age. - Family history: Not pertinent. - : The pt / caregiver states he / she is not on anticoagulants. Home medication list is obtained from the patient. - Exposure Risk Screening:: None identified. Screenin:00 Screening information is obtained from the patient. Fall risk: No risks identified. kr3 Assistance ADL's: requires no assistance with activities of daily living. Abuse/DV Screen: The patient / caregiver reports he/she is: not in a situation that causes fear, pain or injury. Nutritional screening: No deficits noted. Advance Directives: Currently, there is no health care proxy. home support is adequate. Assessment: 10:20 Reassessment: Patient appears in no apparent distress at this time. Cardiovascular: kr3 Chest pain is denied. Respiratory: Airway is patent Respiratory effort is even, unlabored, Breath sounds with wheezes bilaterally. Derm: Skin is pink, warm & dry. 13:38 General: Appears in no apparent distress, Behavior is appropriate for age, cooperative. pml Pain: Denies pain. Neurological: Level of Consciousness is awake, alert, Oriented to person, place, time. Cardiovascular: Capillary refill < 3 seconds. Respiratory: Airway is patent Respiratory effort is even, unlabored. Derm: Skin is pink, warm & dry. Vital Signs: 09:54 BP 131 / 73 RA Sitting (auto/reg); Pulse 100 RA; Resp 18 S; Temp 97.5(O); Pulse Ox 100% mt4 on R/A; Weight 81.65 kg (R); Height 5 ft. 5 in. (165.10 cm) (R); Pain 0/10; 13:33 BP 129 / 72; Pulse 92; Resp 16; Temp 98.2(TE); Pulse Ox 98% on R/A; Pain 0/10; sew 09:54 Body Mass Index 29.95 (81.65 kg, 165.10 cm) mt4 Vitals: 09:54 Log In Time: July 17, 2016 at 09:50. mt4 ED Course: 09:53 Patient visited by Selam Martino. mt4 09:53 Kasia Victor is Private Physician. mt4 09:53 Patient moved to Waiting mt4 09:54 Patient moved to Pre RCE mt4 09:56 Patient moved to Triage 3 kr3 09:57 Triage Initiated kr3 10:00 The patient / caregiver is instructed regarding the plan of care and ED course. Patient kr3 has correct armband on for positive identification. 10:00 No IV's were initiated during this patient's visit. No procedures done that require kr3 assistance. 10:06 Kera Montana PA-C is PHCP. ef1 10:06 Germán Brasher MD is Attending Physician. ef1 10:08 Patient visited by Kera Montana PA-C. ef1 10:17 Patient moved to PD kr3 10:24 Patient name changed from Rhona\S\Amparo\S\Frankson\S\ to Rhona\S\M\S\Frankson. EDMS 10:25 [facility] Payment Agreement was scanned into [employer] and attached to record. lg 10:42 Patient visited by Kera Montana PA-C. ef1 11:25 Patient visited by Kera Montana PA-C. ef1 11:48 Patient visited by Kera Montana PA-C. ef1 12:27 Patient visited by Kera Montana PA-C. ef1 13:12 Patient visited by Kera Montana PA-C. ef1 13:29 Kasia Victor is Referral Physician. ef1 13:33 Patient visited by Alicia Garza. sew 19:52 T-Sheet-- Draft Copy was scanned into [employer] and attached to record. klr 20:58 Chest, 2 View (pa\E\lat) Returned. EDMS 21:42 CT Chest Without Contrast Returned. EDMS Administered Medications: 10:20 Drug: predniSONE 60 mg [prednisone 20 mg tablet (3 tabs)] Route: PO; kr3 10:33 Drug: Albuterol-Ipratropium 1 neb [ipratropium-albuterol 0.5 mg-3 mg(2.5 mg base)/3 mL kt1 nebulization soln (1 neb)] Route: Nebulizer; 10:42 Drug: Albuterol-Ipratropium 1 neb [ipratropium-albuterol 0.5 mg-3 mg(2.5 mg base)/3 mL kt1 nebulization soln (1 neb)] Route: Nebulizer; 10:42 Follow up: Response: Nebulizer completed kt1 10:58 Drug: Albuterol-Ipratropium 1 neb [ipratropium-albuterol 0.5 mg-3 mg(2.5 mg base)/3 mL lb nebulization soln (1 neb)] Route: Nebulizer; RT: 10:36 Initial Med Neb Given as ordered Patient was instructed and evaluated on procedure. kt1 Respiratory: Breath sounds with wheezes bilaterally. at expiration. Order Results: Radiology Order: Chest, 2 View (pa\E\lat) Test: Chest, 2 View (pa\E\lat) REASON FOR EXAMINATION: Cough; PA and lateral chest 07/17/2016; ; Indication: Cough; ; Comparison: PA and lateral chest 10/27/2015, 09/28/2013; ; Findings: The cardiomediastinal silhouette is normal. Small amount of increased; density is seen in the retrosternal location likely related to prominent; costochondral margins. Lungs are otherwise clear. The bones and soft tissues; within normal limits; ; Impression:; ; Small retrosternal opacity is likely related to summation shadow artifact from; superimposed rib/costochondral margins.; ; Recommend CT of the chest which can be performed without contrast to exclude; scarring, nodule or infiltrate .; ; ; Signed by; Gely Longoria MD 07/17/2016 08:36 P; Radiology Order: CT Chest Without Contrast Test: CT Chest Without Contrast REASON FOR EXAMINATION: abn on CXR; CT chest without contrast when 17; ; Indication PA and lateral chest radiograph performed earlier today demonstrated a; retrosternal density.; ; Technique: 3 mm spiral axial sections performed through chest without contrast; ; The thoracic aorta is without aneurysm. The heart is of normal size. There are; no pathologically enlarged mediastinal or hilar nodes. There is a calcified; hilar node; ; There is hyperinflation bilaterally with a rare bullous changes in lower lobes.; Stranding densities are seen within the medial aspect of the right upper lobe and; the medial aspect of the right middle lobe most compatible with pleural and; parenchymal scarring. There is a calcified granuloma of 8 mm size within the; anterior segment right upper lobe, above the minor fissure.; ; Visualized portions of liver, spleen, pancreas, gallbladder are normal. There is; a 1.6 cm left adrenal adenoma. Focal cortical thinning and cortical; calcification is seen within the lateral mid pole of the left kidney and left; kidney is incompletely included in view; ; Impression; 1. Hyperinflation with findings most compatible with COPD; ; 2. Old granulomatous disease; ; 3 Stranding densities in the medial aspect of the anterior segment right upper; lobe and medial aspect right middle lobe most compatible with plate-like; atelectasis and/or scarring. Consider follow-up CT chest in 3-6 months; ; 4. Chronic changes/scarring with cortical thinning and calcification in the; lateral mid pole left kidney; ; ; Signed by; Gely Longoria MD 07/17/2016 08:54 P; Outcome: 13:29 Discharge ordered by Provider. ef1 13:38 Discharge Assessment: Patient awake, alert and oriented x 3. No cognitive and/or pml functional deficits noted. Patient verbalized understanding of disposition instructions. patient administered narcotics - no. The following High Risk Discharge criteria are identified: None. Discharged to home ambulatory. Condition: good Condition: stable. Discharge instructions given to patient, Instructed on discharge instructions, follow up and referral plans. medication usage, Demonstrated understanding of instructions, medications, Pt was receptive of discharge instructions/ teaching. Prescriptions given X 3. No special radiology studies were completed. Property sent home with patient. 13:39 Patient left the ED. pml Signatures: Dispatcher [employer] EDMS Rigo Anderson, Reg Reg Ngozi Gama Kristin kt1 Sakina Marmolejo,RN RN kr3 Selam Martino mt4 Kera Montana, PA-C PA-C ef1 Julissa Noyola,RN RN Alicia Julian Kathie klr MTDD
--- NOTE | 2016-07-19 20:17 | EDDOCDS ---
Physician Documentation [facility] Name: Rhona Reece Age: 36 yrs Sex: Female : 1980 Arrival Date: 07/17/2016 Time: 09:50 Bed PD Private MD: Kasia Victor Abdul Disposition: 07/17/16 13:29 Discharged to Home/Self Care. Impression: Chronic obstructive pulmonary disease with (acute) exacerbation, Atelectasis. - Condition is Stable. - Discharge Instructions: Atelectasis, Adult, Chronic Obstructive Pulmonary Disease. - Prescriptions for Prednisone 20 mg Oral Tablet - take 3 tablet by ORAL route once daily for 5 days; 15 tablet. Moxifloxacin 400 mg Oral Tablet - take 1 tablet by ORAL route once daily; 5 tablet. Albuterol Sulfate 90 mcg/actuation Inhalation HFA Aerosol Inhaler - inhale 2 puff by INHALATION route every 4 hours As needed; 1 Inhaler. Mucinex 600 mg - take 1 tablet by ORAL route 2 times per day; 30 tablet. - Medication Reconciliation, Local Pharmacy Hours form. - Follow up: Kasia Victor; When: 1 - 2 days; Reason: Recheck today's complaints, Continuance of care. Follow up: Emergency Department; Reason: Worsening of conditions. - Problem is new. - Symptoms have improved. Historical: - Allergies: no known allergies; - Home Meds: 1. Depo-Provera IM every 3 mo 2. Albuterol Inhl as needed has machine but no medicine - PMHx: Asthma; - PSHx: none; - Social history: Smoking status: Patient uses tobacco products, current every day smoker. No barriers to communication noted, The patient speaks fluent Jamaican, Speaks appropriately for age. - Family history: Not pertinent. - : The pt / caregiver states he / she is not on anticoagulants. Home medication list is obtained from the patient. - Exposure Risk Screening:: None identified. 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 5 in. (165.10 cm) (R); Pain 0/10; 13:33 BP 129 / 72; Pulse 92; Resp 16; Temp 98.2(TE); Pulse Ox 98% on R/A; Pain 0/10; sew 09:54 Body Mass Index 29.95 (81.65 kg, 165.10 cm) mt4 MDM: 10:13 Financial registration complete. lg 10:17 predniSONE 60 mg PO once; administer with food or milk ordered. ef1 10:17 Albuterol-Ipratropium 1 neb Nebulizer every 20 minutes x3 ordered. ef1 10:17 Call Respiratory ordered. ef1 10:17 Call Respiratory complete. kr3 10:18 Chest, 2 View (pa\E\lat) Ordered. EDMS 10:25 [facility] [place] Payment Agreement was scanned into [employer] and attached to record. lg 11:50 CT Chest Without Contrast Ordered. EDMS 19:52 T-Sheet-- Draft Copy was scanned into [employer] and attached to record. klr Administered Medications: 10:20 Drug: predniSONE 60 mg [prednisone 20 mg tablet (3 tabs)] Route: PO; kr3 10:33 Drug: Albuterol-Ipratropium 1 neb [ipratropium-albuterol 0.5 mg-3 mg(2.5 mg base)/3 mL kt1 nebulization soln (1 neb)] Route: Nebulizer; 10:42 Drug: Albuterol-Ipratropium 1 neb [ipratropium-albuterol 0.5 mg-3 mg(2.5 mg base)/3 mL kt1 nebulization soln (1 neb)] Route: Nebulizer; 10:42 Follow up: Response: Nebulizer completed kt1 10:58 Drug: Albuterol-Ipratropium 1 neb [ipratropium-albuterol 0.5 mg-3 mg(2.5 mg base)/3 mL lb nebulization soln (1 neb)] Route: Nebulizer; Addendum: 07/19/2016 20:15 Radiology Callback: Radiology results faxed to primary care physician/provider. dr mari leonardo faxed formal report of ct chest for fu mlg. Signatures: Dispatcher [employer] EDAL Olive Gaines MD MD ml Ganter, LoriLee, Reg Reg lg Sakina Marmolejo RN RN kr3 Kera Montana, PA-C PA-C ef1 Julissa Noyola RN RN pml Redder, Kathie klr Bickel, Lindsay lb Chatterton, Kristin kt1 The chart was reviewed and I authenticate all verbal orders and agree with the evaluation and treatment provided.Attachments: 07/17 10:25 [facility] [place] Payment Agreement lg 19:52 T-Sheet-- Draft Copy klr MTDD
== END 2016-07-17 13:39 | disposition home or self-care (01) ==
LOC: M ED 09:50
DX: J44.9 Chronic obstructive pulmonary disease, unspecified (principal); J98.11 Atelectasis; F17.210 Nicotine dependence, cigarettes, uncomplicated; Z92.240 Personal history of inhaled steroid therapy

== ENCOUNTER → 2016-08-16 | Outpatient (REF) | payer BC | LOC: M SFHCWAGY 08:33 | PROVIDERS: ATTEND Nurse Practitioner Family | DX: Z12.4 Encounter for screening for malignant neoplasm of cervix (principal); R85.612 Low grade squamous intraepithelial lesion on cytologic smear of anus (LGSIL) ==

== ENCOUNTER → 2016-09-19 | Outpatient (REF) | payer BC | LOC: M SFHCWAGY 09:13 | PROVIDERS: ATTEND Nurse Practitioner Women's Health | DX: R87.612 Low grade squamous intraepithelial lesion on cytologic smear of cervix (LGSIL) (principal) ==

== ENCOUNTER → 2016-09-23 | Outpatient (CLI) | payer BC ==
[2016-09-23 08:12] LABS: MEAN CORPUSCULAR HEMOGLOBIN 32.4 pg (27.0-33.0); MEAN CORPUSCULAR HGB CONC 33.1 g/dl (32.0-36.5); MEAN CORPUSCULAR VOLUME 97.9 fl (80.0-96.0); RED CELL DISTRIBUTION WIDTH 11.9 % (11.5-14.5); WHITE BLOOD COUNT 5.7 K/mm3 (4.0-10.0)
[2016-09-23 08:45] LABS: ALBUMIN 3.4 GM/DL (3.2-5.2); ALBUMIN/GLOBULIN RATIO 1.26 (1.00-1.93); ALKALINE PHOSPHATASE 56 U/L (45-117); ALT/SGPT 36 U/L (12-78); ANION GAP 9 MEQ/L (8-16); AST/SGOT 13 U/L (15-37); BILIRUBIN,TOTAL 0.2 MG/DL (0.2-1.0); BLOOD UREA NITROGEN 13 MG/DL (7-18); CALCIUM LEVEL 8.1 MG/DL (8.5-10.1); CARBON DIOXIDE LEVEL 25 MEQ/L (21-32); CHLORIDE LEVEL 110 MEQ/L (98-107); CHOLESTEROL LEVEL 144 MG/DL (<200); CREATININE FOR GFR 0.75 MG/DL (0.55-1.02); FREE T4 1.03 NG/DL (0.76-1.46); GLOMERULAR FILTRATION RATE > 60.0 (>60); GLUCOSE, FASTING 94 MG/DL (70-105); POTASSIUM SERUM 4.3 MEQ/L (3.5-5.1); SODIUM LEVEL 144 MEQ/L (136-145); TOTAL PROTEIN 6.1 GM/DL (6.4-8.2); TRIGLYCERIDES LEVEL 38 MG/DL (<150)
--- NOTE | 2016-09-23 09:05 | REP ---
LUMBAR SPINE, FIVE VIEWS: HISTORY: Fatigue. COMPARISON: 12/05/2011. There is no acute fracture or subluxation. The L1-2 intervertebral disc is decreased in height consistent with disc degeneration. Osteophytes are present on L1 and 2. The facet joints are normal in appearance. IMPRESSION: Degenerative change as described above. Signed by Narendra Islas MD 09/23/2016 09:23 A
--- NOTE | 2016-09-23 09:30 | REP ---
Clinical: Anemia . Comparison: 07/17/2016 . Technique: PA and lateral. Findings: The mediastinum and cardiac silhouette are normal. The lung espinoza are clear and without acute consolidation, effusion, or pneumothorax. The skeletal structures are intact and normal. Impression: 1. No acute cardiopulmonary process. Signed by Sanjeev Velazquez MD 09/23/2016 09:22 A
== END ==
LOC: M LAB 07:04
PROVIDERS: ATTEND Family Medicine
DX: D64.9 Anemia, unspecified (principal); R53.83 Other fatigue

== ENCOUNTER 2017-05-22 16:18 | Emergency (ER) | payer BC ==
[~2017-05-22] VITALS: Ht 165.1 cm; Wt 86.4 kg
--- NOTE | 2017-05-22 17:53 | REP ---
Right foot series: Four views: History: Injury. Findings: Four views of the right foot demonstrate overall normal mineralization. Bones joints and soft tissues are otherwise unremarkable. No fracture or subluxation is seen. Impression: No fracture seen. Signed by Hasmukh Uriostegui MD 05/22/2017 08:31 P
[2017-05-22 19:49] VITALS: BP 124/73
== END 2017-05-22 19:51 | disposition home or self-care (01) ==
LOC: M ED 16:18
DX: M79.671 Pain in right foot (principal)

== ENCOUNTER → 2018-02-06 | Outpatient (REF) | payer SELFPAY, OTHER ==
[2018-02-08 14:16] LABS: HPV HYBRID CAPTURE II Positive (Negative)
== END ==
LOC: M SFHCWAGY 08:52
DX: Z12.4 Encounter for screening for malignant neoplasm of cervix (principal); R87.612 Low grade squamous intraepithelial lesion on cytologic smear of cervix (LGSIL)
CPT/HCPCS: G0123

== ENCOUNTER → 2018-05-07 | Outpatient (REF) | payer BC | LOC: M SFHCWAGY 09:20 | DX: R87.612 Low grade squamous intraepithelial lesion on cytologic smear of cervix (LGSIL) (principal); R87.810 Cervical high risk human papillomavirus (HPV) DNA test positive | CPT/HCPCS: 88305 ==

== ENCOUNTER → 2018-05-07 | Outpatient (CLI) | payer BC | LOC: M WHC 08:21 | DX: R92.2 Inconclusive mammogram (principal); N63.21 Unspecified lump in the left breast, upper outer quadrant | CPT/HCPCS: 77067 ==

== ENCOUNTER → 2018-05-09 | Outpatient (CLI) | payer BC | LOC: M RAD 11:37 | DX: N63.10 Unspecified lump in the right breast, unspecified quadrant (principal) | CPT/HCPCS: 77065 ==

== ENCOUNTER → 2018-11-08 | Outpatient (CLI) | payer BC ==
[~2018-11-08] MED LIST: DAYQUIL; FLON27.5 NARES; NYQUIL; PROAAER10 INH; ZITHTAB PO
--- NOTE | 2018-11-08 09:33 | REP ---
Digital diagnostic unilateral right breast mammography: History: Screening mammography and diagnostic imaging from May 15, 2018 was BIRADS category III with regard to the right breast for a well Circumscribed 4 mm nodule in the inferior central right breast. 6-month follow-up imaging was recommended. Findings: Magnified focal spot compression views are obtained today in addition to routine views. These demonstrate the recently identified 4 mm nodule in the right breast just lateral to the plane of the nipple and inferior. This is unchanged from the May 07, 2018 study. It has well-circumscribed margins. Scattered fibroglandular elements are seen. No neodensity is observed. No architectural distortion or microcalcification is seen. No worrisome skin changes appreciated. Impression: Stable BIRADS category three probably benign findings. Stable 4 mm nodule right breast. Repeat bilateral mammography recommended in 6 months. BIRADS 3: BI-RADS/ACR category 3 mammogram. Probably Benign Findings. This mammogram was interpreted with the aid of an FDA-approved computer-aided detection system. The patient states she had a clinical breast exam in April 2018 The patient letter being requested is M3. Electronically Signed by Hasmukh Uriostegui MD 11/08/2018 01:57 P
== END ==
LOC: M RAD 08:44
PROVIDERS: ATTEND Nurse Practitioner Family
DX: N63.10 Unspecified lump in the right breast, unspecified quadrant (principal)
CPT/HCPCS: 77065; G0279

== ENCOUNTER 2018-11-15 10:19 | Emergency (ER) | payer BC ==
[~2018-11-15] VITALS: Ht 165.1 cm; Wt 96.2 kg
[2018-11-15 10:19] VITALS: BP 127/75
[2018-11-15] MEDS ORDERED: DAYQUIL (10:23)
[2018-11-15] MEDS ORDERED: NYQUIL (10:23)
[2018-11-15] MEDS ORDERED: ZITHTAB PO (12:39)
[2018-11-15] MEDS ORDERED: PROAAER10 INH (12:39)
[2018-11-15] MEDS ORDERED: FLON27.5 NARES (12:39)
== END 2018-11-15 12:58 | disposition home or self-care (01) ==
LOC: M ED 10:19
DX: J06.9 Acute upper respiratory infection, unspecified (principal); R06.2 Wheezing; J32.9 Chronic sinusitis, unspecified; F17.210 Nicotine dependence, cigarettes, uncomplicated

== ENCOUNTER → 2020-02-06 | Outpatient (REF) | payer BC ==
[2020-03-14 10:42] LABS: CHLAMYDIA DNA AMPLIFICATION NEGATIVE (NEGATIVE); GC DNA AMPLIFICATION POSITIVE (NEGATIVE)
== END ==
LOC: M LAB REF 06:48
PROVIDERS: ATTEND Physician Assistant
DX: Z11.3 Encounter for screening for infections with a predominantly sexual mode of transmission (principal)

== ENCOUNTER → 2020-02-23 | Outpatient (REF) | payer BC ==
[2020-02-23 21:21] LABS: CHLAMYDIA DNA AMPLIFICATION NEGATIVE (NEGATIVE); GC DNA AMPLIFICATION NEGATIVE (NEGATIVE)
== END ==
LOC: M WUC 19:37
PROVIDERS: ATTEND Physician Assistant
DX: N76.0 Acute vaginitis (principal); Z11.3 Encounter for screening for infections with a predominantly sexual mode of transmission

== ENCOUNTER → 2020-12-16 | Outpatient (CLI) | payer BC ==
--- NOTE | 2020-12-16 15:28 | REP ---
INDICATION: EXCESSIVE MENSES WITH REG CYCLE. COMPARISON: None. TECHNIQUE: Transvesical and transvaginal imaging FINDINGS: The uterus measures 8.9 x 4.1 x 5.1 cm. The parenchymal echo pattern is within normal limits. The endometrial echo complex is smooth and unremarkable appearing measuring 6 mm in its greatest thickness. The right ovary measures 3.3 x 2 x 2.5 cm. Within the right ovary there is a 2.6 cm sized anechoic structure which exhibits posterior wall enhancement and increased through transmission. The right ovarian RI is 0.46. Left ovary measures 2.1 x 1.1 x 1.8 cm and is within normal limits with an RI 0.32. Urinary bladder measures 4 x 4 x 8 cm. IMPRESSION: Simple right ovarian cyst as described above. <Electronically signed by Orlin Hodgson > 12/16/20 [id number]
== END ==
LOC: M RAD 14:21
PROVIDERS: ATTEND Physician Assistant
DX: N92.0 Excessive and frequent menstruation with regular cycle (principal)

== ENCOUNTER 2021-11-04 15:02 | Emergency (ER) | payer OTHER, BC ==
[~2021-11-04] VITALS: Ht 165.1 cm; Wt 82.1 kg
[2021-11-04 19:15] VITALS: BP 115/71
== END 2021-11-04 19:15 | disposition home or self-care (01) ==
LOC: M ED 15:02
DX: S46.911A Strain of unspecified muscle, fascia and tendon at shoulder and upper arm level, right arm, initial encounter (principal); S30.0XXA Contusion of lower back and pelvis, initial encounter; M54.2 Cervicalgia; W17.89XA Other fall from one level to another, initial encounter; Y92.9 Unspecified place or not applicable; Y93.9 Activity, unspecified; Y99.0 Civilian activity done for income or pay

== ENCOUNTER 2022-02-01 05:45 | Emergency (ER) | payer BC ==
[~2022-02-01] VITALS: Ht 165.1 cm; Wt 81.8 kg
[2022-02-01 05:46] VITALS: BP 135/79
== END 2022-02-01 06:50 | disposition left against medical advice (07) ==
LOC: M ED 05:45
DX: Z53.21 Procedure and treatment not carried out due to patient leaving prior to being seen by health care provider (principal)

== ENCOUNTER → 2022-04-29 | Outpatient (REF) | payer BC | LOC: M SFHCWAGY 09:59 | PROVIDERS: ATTEND Obstetrics & Gynecology | DX: N93.9 Abnormal uterine and vaginal bleeding, unspecified (principal) ==

== ENCOUNTER → 2022-05-09 | Outpatient (CLI) | payer BC | LOC: M LABSMTC 10:11 | PROVIDERS: ATTEND Anesthesiology | DX: Z01.812 Encounter for preprocedural laboratory examination (principal); Z11.52 Encounter for screening for COVID-19 ==

== ENCOUNTER 2022-05-11 10:48 | Day surgery (SDC) | payer BC ==
[~2022-05-11] VITALS: Ht 157.5 cm; Wt 86.0 kg
[~2022-05-11 10:48] MED LIST changes: +ceFAZolin SOD 2 GM in IV 1 EA IV ONE
[2022-05-11] MEDS ORDERED: LR 1,000 ML IV SCH ×2 (11:10→14:25)
[2022-05-11] MEDS ORDERED: ACET32TAB PO (11:17)
[2022-05-11 11:18] LABS: HEMATOCRIT 43.6 % (36.0-47.0); HEMOGLOBIN 14.3 g/dl (12.0-15.5); MEAN CORPUSCULAR HEMOGLOBIN 32.6 pg (27.0-33.0); MEAN CORPUSCULAR HGB CONC 32.8 g/dl (32.0-36.5); MEAN CORPUSCULAR VOLUME 99.3 fl (80.0-96.0); PLATELET COUNT, AUTOMATED 288 10^3/uL (150-450); RED BLOOD COUNT 4.39 10^6/uL (4.00-5.40); WHITE BLOOD COUNT 9.1 10^3/uL (4.0-10.0)
[2022-05-11] MEDS ORDERED: BUPIVACAINE HCL 0.25% 30ML VIAL As Ordered ONE (12:32)
[2022-05-11] MEDS ORDERED: propofoL 200 MG/20 ML VIAL As Ordered ONE (13:01)
[2022-05-11] MEDS ORDERED: ROCURONIUM BROMIDE 50 MG/5 ML VIAL As Ordered ONE (13:01)
[2022-05-11] MEDS ORDERED: SUGAMMADEX SODIUM 500 MG/5 ML VIAL (BRIDION) As Ordered ONE (13:01)
[2022-05-11] MEDS ORDERED: fentaNYL 100 MCG/2 ML INJECTION As Ordered ONE (13:01)
[2022-05-11] MEDS ORDERED: MIDAZOLAM INJ 2MG/2ML VIAL (J2250 PER 1MG) As Ordered ONE (13:01)
[2022-05-11] MEDS ORDERED: dexameTHASONE 4 MG/ML 1ML VIAL (J1100 PER 1MG) As Ordered ONE (13:01)
[2022-05-11] MEDS ORDERED: ONDANSETRON 4MG 2ML VIAL As Ordered ONE (13:01)
[2022-05-11] MEDS ORDERED: HYDROmorphone HCL 2MG/ML 1ML VIAL As Ordered ONE (13:01)
[2022-05-11] MEDS ORDERED: KETOROLAC 60MG 2ML VIAL As Ordered ONE (13:01)
[2022-05-11] MEDS ORDERED: LIDOCAINE 2% 100MG/5ML SDV (FOR ANES.) As Ordered ONE (13:01)
[2022-05-11] MEDS ORDERED: ACETAMINOPHEN 1000MG 100ML IV BAG As Ordered ONE (13:08)
[2022-05-11] MEDS ORDERED: PHENYLephrine 500MCG 5ML (100MCG/ML) SYRINGE As Ordered ONE (13:19)
[2022-05-11] MEDS ORDERED: HYDROMORPHONE HCL 0.5 MG/ 0.5 ML SYRINGE (J1170 PER 1) IV PRN (14:25)
[2022-05-11] MEDS ORDERED: METOCLOPRAMIDE INJ 10MG/2ML VIAL (J2765 PER 1) IV PRN (14:25)
[2022-05-11] MEDS ORDERED: oxyCODONE 5MG TAB PO PRN (14:25)
[2022-05-11] MEDS ORDERED: ONDANSETRON 4MG 2ML VIAL IV PRN (14:25)
[2022-05-11] MEDS ORDERED: fentaNYL 100 MCG/2 ML INJECTION IV PRN (14:25)
[2022-05-11] MEDS ORDERED: PERCOCET 5MG/325MG TAB PO PRN (15:00)
[2022-05-11 15:36] VITALS: BP 111/59
[2022-05-11] MEDS ORDERED: KETOROLAC 30 MG/ML 1ML VIAL IV SCH (20:00)
== END 2022-05-11 16:03 | disposition home or self-care (01) ==
LOC: M SDC 10:48
PROVIDERS: ATTEND Obstetrics & Gynecology
DX: N88.8 Other specified noninflammatory disorders of cervix uteri (principal); N72 Inflammatory disease of cervix uteri; N93.9 Abnormal uterine and vaginal bleeding, unspecified
CPT/HCPCS: 36415; 58552; 85027; 86850; 86900; 86901; 88307; J0131; J0690; J1100; J1170; J1885; J2250; J2370; J2405; J3010; S2900

== ENCOUNTER → 2023-07-16 | Outpatient (REF) | payer BC ==
[~2023-07-16] MED LIST changes: +ACET32TAB PO; +DICL20GE TP; +MENT118S2 TP; -ceFAZolin SOD 2 GM in IV 1 EA IV ONE
== END ==
LOC: M LAB REF 18:16
PROVIDERS: ATTEND Physician Assistant
DX: R30.0 Dysuria (principal); Z20.2 Contact with and (suspected) exposure to infections with a predominantly sexual mode of transmission

== ENCOUNTER 2023-09-24 12:05 | Emergency (ER) | payer BC ==
[~2023-09-24] VITALS: Ht 167.6 cm; Wt 73.4 kg
[2023-09-24] MEDS ORDERED: LIDOCAINE W/EPINEPHRINE 1% 20ML VIAL SC ONE (13:20)
[2023-09-24 13:54] VITALS: BP 132/85; TEMP 97.6; O2SAT 100
== END 2023-09-24 13:55 | disposition home or self-care (01) ==
LOC: M ED 12:05
DX: L72.0 Epidermal cyst (principal); Z79.2 Long term (current) use of antibiotics; Z79.899 Other long term (current) drug therapy